=== PATIENT | female | born 1970 | race Hispanic/Latino ===

== ENCOUNTER 2020-04-30 21:44 | Emergency (ER) | payer OTHER ==
[~2020-04-30] VITALS: Ht 154.9 cm; Wt 88.0 kg
[2020-04-30] MEDS ORDERED: CEFDINIR300 MG PO (23:17)
[2020-04-30] MEDS ORDERED: PROVENTIL HFA6.7 GM INH (23:17)
[2020-04-30] MEDS ORDERED: TESSALON PERLE100 MG PO (23:17)
== END 2020-04-30 23:30 | disposition home or self-care (01) ==
LOC: FSED 22:09
DX: U07.1 COVID-19 (principal); R05 Cough; J20.9 Acute bronchitis, unspecified; R06.02 Shortness of breath; I10 Essential (primary) hypertension; E11.65 Type 2 diabetes mellitus with hyperglycemia
CPT/HCPCS: 71045; 80053; 85025; 99283

== ENCOUNTER 2020-05-02 13:55 | Emergency (ER) | payer OTHER ==
[~2020-05-02] VITALS: Ht 154.9 cm; Wt 88.0 kg
[~2020-05-02 13:55] MED LIST: CEFDINIR300 MG PO; PROVENTIL HFA6.7 GM INH; TESSALON PERLE100 MG PO
[2020-05-02] MEDS ORDERED: ACETAMINOPHEN 325 MG TAB PO ONE ×2 (14:15→14:30)
[2020-05-02] MEDS ORDERED: SODIUM CHLORIDE 0.9% 500ML 500 ML IV ONE (14:30)
[2020-05-02 15:09] LABS: BASOPHILS % 0.2 % (0.0-1.0); EOSINOPHILS # (AUTO) 0.1 (0.0-0.4); EOSINOPHILS % 0.5 % (0.0-6.0); HEMATOCRIT 45.8 % (34.2-44.1); HEMOGLOBIN 15.1 g/dL (12.0-16.0); LYMPHOCYTES # (AUTO) 1.6 (1.0-3.2); LYMPHOCYTES % 15.9 % (18.0-39.1); MEAN CORPUSCULAR HEMOGLOBIN 27.6 pg (28-32); MEAN CORPUSCULAR VOLUME 83.6 fL (81-99); MONOCYTES # (AUTO) 0.7 (0.2-0.8); MONOCYTES % 7.1 % (4.4-11.3); NEUTROPHILS # (AUTO) 7.4 (2.1-6.9); NEUTROPHILS % 74.8 % (38.7-80.0); PLATELET COUNT 204 x10e3/uL (140-360); RED BLOOD COUNT 5.48 x10e6/uL (3.6-5.1); RED CELL DISTRIBUTION WIDTH 13.3 % (11.7-14.4)
[2020-05-02 15:26] LABS: ANION GAP 15.6 mmol/L (8-16); BLOOD UREA NITROGEN 24 mg/dL (7-26); BUN/CREATININE RATIO 39 (6-25); CALCIUM 8.9 mg/dL (8.4-10.2); CARBON DIOXIDE 27 mmol/L (22-29); CHLORIDE 100 mmol/L (98-107); CREATINE KINASE 30 IU/L (29-168); CREATININE, SERUM 0.61 mg/dL (0.57-1.11); EST GLOMERULAR FILTRATION RATE > 60 ML/MIN (60-); GLUCOSE 154 mg/dL (74-118); POTASSIUM 3.6 mmol/L (3.5-5.1); SODIUM 139 mmol/L (136-145)
== END 2020-05-02 18:14 | disposition home or self-care (01) ==
LOC: ER 14:17
DX: U07.1 COVID-19 (principal); R50.9 Fever, unspecified; R05 Cough; R06.02 Shortness of breath; E11.65 Type 2 diabetes mellitus with hyperglycemia; I10 Essential (primary) hypertension; R94.31 Abnormal electrocardiogram [ECG] [EKG]
CPT/HCPCS: 36415; 71045; 80048; 82550; 82553; 84484; 85025; 93005; 99284; J7040